=== PATIENT | male | born 1955 | race Caucasian/White ===

== ENCOUNTER 2025-01-22 22:00 | Emergency (ER) | payer MEDICARE, BC, SELFPAY ==
[2025-01-22 22:01] VITALS: BMI 27.2
[2025-01-22 22:12] VITALS: BP 160/95; PULSE 80; RESP 17; TEMP 36.5; O2SAT 94
--- NOTE | 2025-01-23 00:14 | PD.EDWOUND ---
ED Wound/Laceration-RME/HPI General Chief Complaint: Wound/Laceration Stated Complaint: FINGER LACERATION ON ARJUN WIRE Time Seen by Provider: 01/22/25 22:01 Arrival date/time: 01/22/25 22:00 69-year-old male with a laceration to the left fourth finger. Patient states while gardening he caught his left fourth finger and some arjun wire and pulled a flap of skin. He denies any stiffness numbness tingling or weakness of the finger. Patient states that his last tetanus update was in 2017 Limitations: no limitations Related Data Home Medications ?Medication ?Instructions ?Recorded ?Confirmed albuterol sulfate 90 mcg/actuation 2 puff inhalation Q6HR PRN 02/03/17 05/03/19 aerosol inhaler (Proventil HFA) WHEEZING #0 inhalations gemfibrozil 600 mg tablet (Lopid) 600 mg PO BID #0 tabs 02/04/17 05/03/19 lamotrigine 25 mg tablet 75 mg PO BID #0 tabs 02/04/17 05/03/19 B-complex with vitamin C (Super B 1 tab PO QDAY 04/01/19 05/03/19 Complex-Vitamin C tablet) aspirin 81 mg tablet,delayed 81 mg PO QDAY 04/01/19 05/03/19 release (Aspir-) citalopram 20 mg tablet 20 mg PO QDAY 04/01/19 05/03/19 glucosam 750 mg-chondroi 100 2 tab PO QDAY 04/01/19 05/03/19 mg-hyalur 1.65 mg-CF borate 108 mg tablet montelukast 10 mg tablet 10 mg PO QPM 04/01/19 05/03/19 asxnfkrxzram-xmxddjq-hxoep acid 1 tab PO QDAY 04/01/19 05/03/19 400 mcg-lutein 250 mcg chewable tablet (Centrum Silver) niacin 500 mg tablet 500 mg PO QDAY 04/01/19 05/03/19 saw palmetto 500 mg capsule 500 mg PO QDAY 04/01/19 05/03/19 trazodone 100 mg tablet 100 mg PO QDAY 04/01/19 05/03/19 Allergies Allergy/AdvReac Type Severity Reaction Status Date / Time erythromycin base Allergy Severe GI-UPSET/ Verified 01/22/25 22:03 DIARRHEA latex Allergy Severe RED RASH Verified 01/22/25 22:03 Review of Systems Constitutional Constitutional: Denies chills and Denies fever(s) Musculoskeletal Musculoskeletal: Denies deformity, Denies joint swelling, Denies numbness and Denies tingling Integumentary/Breasts Skin/Breast: Reports unusual bruising and Reports wounds Neurologic Neurologic: Denies numbness and Denies tingling Hematologic/Lymphatic Hematologic/Lymphatic: Denies easy bleeding and Denies easy bruising Past Medical History Past Medical History NEUROLOGIC: Negative Seizures CARDIAC: Positive Cardiac Disorders and Hypercholesterolemia; Negative Congestive Heart Failure RESPIRATORY: Negative Chronic Obstructive Pulmonary Disease (COPD) GASTROINTESTINAL: Positive Gastrointestinal Disorders and Gall Bladder Disease GENITOURINARY: Positive Genitourinary Disorders and Kidney Stones; Negative Renal Disease ENDOCRINE: Negative Diabetes Mellitus Type 1 or Diabetes Mellitus Type 2 OTHER HISTORY: Negative Blood Transfusions or Anesthesia Reactions Surgical History SURGICAL: Positive Abdominal Surgery and Joint Replacement Social History SMOKING STATUS: Never smoker ED Exam General Limitations: Present no limitations General appearance: Present alert and in no apparent distress Expanded Upper Extremity Exam Forearm/Wrist exam: Present normal inspection and full ROM Hand exam: Present other (left 4th digit with a 2 cm irregular shapped partial skin avulsion (flap) volar middle phalanx, no ligament or tendon involvement, FROM, cap refill < 2 secs) Vascular exam: Normal capillary refill, radial pulse and ulnar pulse Neurological Exam Neurological exam: Present alert, oriented X3 and CN II-XII intact Psychiatric Psychiatric exam: Present normal affect and normal mood Skin Skin exam: Present warm, dry, intact and normal color Course Quality Measures none Orders Category Date Time Status Set Up Suture Tray STAT Care 01/23/25 00:41 Active Lidocaine 1% 20 ml [Xylocaine 1% 20 ML] Med 01/23/25 00:48 Discontinued 10 ml INFL X1 ONE Tet,Diphth,Pertuss(Acell)-Tdap [Boostrix Vacc] Med 01/23/25 00:41 Discontinued 0.5 ml IMI .ONCE ONE Vital Signs Vital signs: Vital Signs Temperature 97.7 F 01/22/25 22:12 Pulse Rate 80 01/22/25 22:12 Respiratory Rate 17 01/22/25 22:12 Blood Pressure 160/95 H 01/22/25 22:12 Pulse Oximetry (%) 94 L 01/22/25 22:12 Oxygen Delivery Method Room Air 01/22/25 22:12 Procedures -ED Laceration Laceration 1: Site: hand Side (If applicable): left (4th digit) Size (cm): 2 Description: flap Depth: simple, single layer Local Anesthetic: other anesthetic (none patient declined ) Pre-repair: irrigated extensively Skin layer closed with: nylon Size (cm): 3-0 Number of sutures: 3 Technique: simple, interrupted (Patient tolerated well neurovascular remained intact) Wound / Laceration Patient data External records reviewed:: None Clinical information provided by:: patient Social determinants that could affect healthcare access:: none Patient has the following chronic illnesses:: none How is presenting disease/condition affected by chronic disease/condition?: no chronic disease Evaluation data The following diagnostics were reviewed and interpreted by me:: other (specify) (none) Lab and/or radiology exams considered but not ordered:: none Interpretation Summary: n/a Medications / Prescriptions Medications or Prescriptions considered but not ordered:: none Medication administrations:: Medication Administration History Discontinued Medications Diphtheria/Tetanus/Acell Pertussis (Diphth,Pertuss(Acell),Tet Vac 0.5 Ml Syr- Adult) 0.5 ml IMi .ONCE ONE Stop: 01/23/25 00:42 Lidocaine HCl (Lidocaine Hcl 1% 20 Ml Vial) 10 ml INFL X1 ONE Stop: 01/23/25 00:49 Last Admin: 01/23/25 00:59 Dose: Not Given Documented By: ISABELLA Non-Admin Reason: Patient Refused as above Consultations Consultation(s) initiated? (list below): No Diagnosis Wound Differential Diagnosis: laceration and avulsion of skin Most likely diagnosis given after review of the tests above:: laceration 4th left finger Admission Indicated Admission indicated?: not indicated Admission Request Was there a request for admission?: No Disposition Plan Disposition Plan: Discharge Discharge Attestation Discharge Attestation: The patient and all family members were given an opportunity to ask questions and understood the discharge instructions. Discharge instructions specifically effects, indications for sooner follow up or return to the emergency department, and the expected course of current diagnosis. Patient condition: Stable Discharge Plan Plan Patient Disposition: HOME (Self Care) Prescriptions/Referrals Prescriptions/Med Rec: No Action albuterol sulfate [Proventil HFA] 6.7 GM HFA aerosol inhaler 2 puff Inhalation Q6HR PRN (Reason: WHEEZING) Qty: 0 lamotrigine 25 MG tablet 75 mg PO BID Qty: 0 gemfibrozil [Lopid] 600 MG tablet 600 mg PO BID Qty: 0 aspirin [Aspir-81] 81 mg Tablet,Delayed Release (Dr/Ec) 81 mg PO QDAY citalopram 20 mg Tablet 20 mg PO QDAY trazodone 100 mg Tablet 100 mg PO QDAY niacin 500 mg Tablet 500 mg PO QDAY montelukast 10 mg Tablet 10 mg PO QPM saw palmetto 500 mg Capsule 500 mg PO QDAY B-complex with vitamin C [Super B Complex-Vitamin C] Tablet 1 tab PO QDAY ygadoghh-rhquj-gktlg-CF borate 750 mg-100 mg- 1.65 mg-108 mg Tablet 2 tab PO QDAY Centrum Silver 400-250 mcg Tablet,Chewable 1 tab PO QDAY Problem List Clinical Impression: Laceration Patient/Caregiver Discharge Instructions Discharge Activity: activity as tolerated Additional Instructions: Do not get sutures wet for the first 24 hours then keep clean with soap and water dry cover with a clean dry dressing follow with your primary care provider in 2 days for wound check and then in 10 days to have sutures removed Print Language: Persian Stand Alone Forms: Paulina Award Info., Patient Portal Info Letter Vaccines Vaccines Given During Stay: TDaP
[2025-01-23] MEDS: DIPHTH,PERTUSS(ACELL),TET VAC 0.5 ML SYR- ADULT IMi (01:06)
== END 2025-01-23 01:18 | disposition home or self-care (01) ==
PROVIDERS: Emergency Provider Emergency Medicine; PCP Family Medicine
DX: S61.215A Laceration without foreign body of left ring finger without damage to nail, initial encounter (principal); W26.8XXA Contact with other sharp object(s), not elsewhere classified, initial encounter; Y93.H2 Activity, gardening and landscaping; Z23 Encounter for immunization
CPT/HCPCS: 12001; 90471; 90715; 99283

== ENCOUNTER → 2025-06-01 | Outpatient (CLI) | payer MEDICARE, BC, SELFPAY ==
--- NOTE | 2025-06-01 12:41 | XR_ITS ---
Examination: Bilateral knees 2 views technique: AP upright bilateral knees single view, PA upright bilateral knees single view Date and time: June 01, 2025 1325 hours INDICATIONS: Patient fell 4 days ago with injury to both knees, bilateral knee pain. FINDINGS: Bilateral knee arthroplasties Satisfactory alignment No fractures IMPRESSION: No acute fractures No loosening of the prosthetic components
--- NOTE | 2025-06-01 12:41 | XR_ITS ---
Examination: Lateral left knee single view TECHNIQUE: Upright lateral left knee single view Date and time: June 11, 2025 1329 hours INDICATIONS: Patient fell 4 days ago with injury to the knee, knee pain. FINDINGS: Total left knee arthroplasty. Satisfactory alignment. No fracture IMPRESSION: No fracture
== END | disposition home or self-care (01) ==
LOC: SDIM 12:24
PROVIDERS: PCP Family Medicine; Referring Provider Orthopaedic Surgery; Visit Provider Orthopaedic Surgery
DX: M25.562 Pain in left knee (principal); Z96.652 Presence of left artificial knee joint
CPT/HCPCS: 73560; 73565

== ENCOUNTER → 2025-11-03 | Outpatient (CLI) | payer MEDICARE, BC, SELFPAY ==
--- NOTE | 2025-11-03 13:09 | XR_ITS ---
Examination: Fingers, right hand first digit 3 views Technique: AP, oblique, lateral views right hand first digit 3 views. Exam date and time: November 03, 2025, 1336 hours INDICATIONS: First digit pain and swelling 5 days FINDINGS: Acute fractures involving the mid and distal aspect proximal phalanx first digit, intra-articular No major displacement IMPRESSION: Comminuted fractures proximal phalanx first digit
--- NOTE | 2025-11-03 13:09 | XR_ITS ---
Examination: Hand, right 3 views Technique: Hand AP, oblique, lateral 3 views Date and time of exam: November 03, 2025, 1336 hours INDICATIONS: First digit redness swelling and pain 5 days. FINDINGS: Moderate juxta-articular bone demineralization Significant osteoarthritis first carpometacarpal joint and interphalangeal joint first digit No cortical bone erosions No foreign body Also significant osteoarthritis distal interphalangeal joints second through fifth digits No erosive arthritis No fractures IMPRESSION: Osteoarthritis as above Please see the right first digit films for better description of fractures proximal phalanx first digit
== END | disposition home or self-care (01) ==
LOC: CDIM 12:45
PROVIDERS: PCP Family Medicine; Referring Provider Orthopaedic Surgery; Visit Provider Orthopaedic Surgery
DX: M18.11 Unilateral primary osteoarthritis of first carpometacarpal joint, right hand (principal); M19.041 Primary osteoarthritis, right hand; S62.511A Displaced fracture of proximal phalanx of right thumb, initial encounter for closed fracture; X58.XXXA Exposure to other specified factors, initial encounter
CPT/HCPCS: 73130; 73140

== ENCOUNTER → 2025-11-21 | Outpatient (CLI) | payer MEDICARE, BC, SELFPAY ==
--- NOTE | 2025-11-21 10:46 | XR_ITS ---
Examination: Fingers, right hand 3 views, first digit Technique: AP, oblique, lateral views right hand. Exam date and time: November 21, 2025, 1049 hours INDICATIONS: Injury to the hand October 28, 2025 with persistent pain FINDINGS: Moderate osteopenia Moderate osteoarthritis. Old fracture fifth metacarpal Acute fracture distal aspect proximal phalanx first digit, intra-articular without significant displacement IMPRESSION: Early healing fracture distal aspect proximal phalanx first digit with satisfactory alignment
== END | disposition home or self-care (01) ==
LOC: SDIM 10:31
PROVIDERS: PCP Family Medicine; Referring Provider Orthopaedic Surgery; Visit Provider Orthopaedic Surgery
DX: S62.511A Displaced fracture of proximal phalanx of right thumb, initial encounter for closed fracture (principal); X58.XXXA Exposure to other specified factors, initial encounter
CPT/HCPCS: 73140